=== PATIENT | male | born 1990 | race Caucasian/White ===

== ENCOUNTER 2017-03-16 13:42 | Emergency (ER) | payer SELFPAY ==
[~2017-03-16] VITALS: Ht 170.2 cm; Wt 65.8 kg
[2017-03-16 14:11] LABS: BASOPHILS # (AUTO) 0.1 /CMM (0.0-0.2); BASOPHILS % (AUTO) 0.6 % (0.0-2.0); EOSINOPHILS # (AUTO) 0.1 /CMM (0.0-0.7); EOSINOPHILS % (AUTO) 0.9 % (0.0-6.0); HEMATOCRIT 43 % (39-51); HEMOGLOBIN 14.4 g/dL (13.5-17.5); LYMPHOCYTES # (AUTO) 2.2 /CMM (0.8-4.8); LYMPHOCYTES % (AUTO) 23.2 % (20.0-44.0); MEAN CORPUSCULAR HEMOGLOBIN 30 PG (26.0-33.0); MEAN CORPUSCULAR HGB CONC 34 g/dl (31.0-36.0); MEAN CORPUSCULAR VOLUME 89 fL (80-96); MONOCYTES # (AUTO) 0.5 /CMM (0.1-1.30); MONOCYTES % (AUTO) 4.9 % (2.0-12.0); NEUTROPHILS # (AUTO) 6.8 /CMM (1.8-8.9); NEUTROPHILS % (AUTO) 70.4 % (43.0-81.0); PLATELET COUNT (AUTO) 296 /CMM (150-450); RDW COEFFICIENT OF VARIATION 11.8 (11.5-15.0); WHITE BLOOD COUNT (AUTO) 9.7 K/uL (4.3-11.0)
[2017-03-16 14:27] LABS: CALCIUM, SERUM 8.6 mg/dL (8.5-10.1); CARBON DIOXIDE 26 mmol/L (21-32); CHLORIDE 104 mmol/L (98-107); CREATININE 0.8 mg/dL (0.6-1.3); GLUCOSE 131 mg/dL (74-106); POTASSIUM 3.5 mmol/L (3.5-5.1); SODIUM SERUM 139 mmol/L (136-145); UREA NITROGEN, BLOOD 12 mg/dL (7-18)
[2017-03-16 14:32] LABS: ALANINE AMINOTRANSFERASE 20 U/L (12-78); ALBUMIN 3.3 g/dL (3.4-5.0); ALCOHOL, BLOOD < 3 mg/dL (0-0); ALKALINE PHOSPHATASE 64 U/L (46-116); ASPARTATE AMINOTRANSFERASE 18 U/L (15-37); BILIRUBIN,DIRECT 0.2 mg/dL (0.0-0.2); TOTAL PROTEIN, SERUM 6.6 g/dL (6.4-8.2)
[2017-03-16 14:33] LABS: ACETAMINOPHEN 0 ug/ml (10-30); SALICYLATE < 2.8 mg/dL (2.8-20.0)
[2017-03-16 14:56] LABS: APPEARANCE,URINE Clear (CLEAR); BILIRUBIN,URINE Negative (NEGATIVE); BLOOD, URINE Negative Ery/uL (NEGATIVE); COLOR,URINE Yellow (YELLOW); KETONES,URINE Negative (NEGATIVE); LEUKOCYTE ESTERASE ,URINE Negative (NEGATIVE); NITRITE, URINE Negative (NEGATIVE); PROTEIN,URINE 30 mg/dl (NEGATIVE); UGLUCOSE Negative (NEGATIVE); UROBILINOGEN,URINE 0.2 EU/dL (0.2)
[2017-03-16 14:57] LABS: BACTERIA,URINE Rare /HPF (None Seen); RBC,URINE 0-2 /HPF (0-2); SQUAMOUS EPITHELIAL CELL,UR Rare /HPF (None Seen); WBC,URINE 0-2 /HPF (0-3)
[2017-03-16 15:39] VITALS: BP 111/69
== END 2017-03-16 15:55 | disposition home or self-care (01) ==
LOC: ER 13:43
DX: F15.10 Other stimulant abuse, uncomplicated (principal); F17.200 Nicotine dependence, unspecified, uncomplicated
CPT/HCPCS: 36415; 80048; 80076; 80305; 80329; 81001; 85025; 93005 ×2; 99285; A4606; G0480 ×2; Z7610; 81000-TC

== ENCOUNTER 2017-10-22 06:46 | Emergency (ER) | payer MEDICAID ==
[~2017-10-22] VITALS: Ht 175.3 cm; Wt 59.0 kg
--- NOTE | 2017-10-22 06:46 | NUR ---
BB RA860 C/O "I HAVE ANXIETY BECAUSE I TOOK METH TODAY AND MIGHT BE WITHDRAWING". PT NOTED EXTENSIVE PSYCH HISTORY. SPECIFICALLY ASKING FOR SOMETHING TO CALM HIM DOWN. VSS NAD A/OX4 ABLE TO MAKE NEEDS KNOWN. WILL CONTINUE TO MONITOR FOR ANY CHANGES DURING THE SHIFT.
--- NOTE | 2017-10-22 06:50 | NUR ---
ER MD TOBIN AT BEDSIDE
--- NOTE | 2017-10-22 06:59 | NUR ---
PT GAVE URINE SAMPLE. AWAITING LAB PICKUP
[2017-10-22] MEDS ORDERED: LORAZEPAM 1 MG TABLET ONE (07:07)
[2017-10-22] MEDS ORDERED: LORAZEPAM 1 MG TABLET PO ONE (07:30)
--- NOTE | 2017-10-22 07:30 | NUR ---
RECEIVED REPORT FOR LIZETTE.
--- NOTE | 2017-10-22 08:15 | NUR ---
Patient discharged to home in stable condition. Written and verbal after care instructions given. Patient verbalizes understanding of instruction.
[2017-10-22 08:18] VITALS: BP 126/82
== END 2017-10-22 08:19 | disposition home or self-care (01) ==
LOC: ER 06:50
DX: F15.10 Other stimulant abuse, uncomplicated (principal); F32.9 Major depressive disorder, single episode, unspecified; F43.10 Post-traumatic stress disorder, unspecified; F42.9 Obsessive-compulsive disorder, unspecified; F84.0 Autistic disorder; F20.9 Schizophrenia, unspecified; F17.200 Nicotine dependence, unspecified, uncomplicated; Z60.2 Problems related to living alone
CPT/HCPCS: A4606; Z7610

== ENCOUNTER 2020-04-06 14:17 | Emergency (ER) | payer MEDICAID ==
[~2020-04-06] VITALS: Ht 175.3 cm; Wt 71.2 kg
--- NOTE | 2020-04-06 14:43 | NUR ---
RAMYA FROM THE STREET TO ER BED 12. AAOX4. NOT IN RESP DISTRESS. AMBULATORY. CAME IN FOR SUICIDAL IDEATION W/ PLAN TO CUT HIS WRIST. DENIES HI. DENIES VISUAL AND AUDITORY HALLUCINATION. PT DID ADMITS TO USE METH TODAY. PT IS STRIPPED OFF CLOTHING, PLACED IN GOWN, BELONGINGS PLACED IN LOCKER LOCATED IN UTILITY ROOM. SECURITY ALSO WANDED THE PT. VISUALLY INSPECTED FOR CONTRANBAND. PT IS SEEKING VOLUNTARY IN PATIENT CARE. WAS AT THE BEDSIDE FOR EVAL. ORDERS RECEIVED NOTED AND CARRIED OUT. URINE COLLECTED AND SENT TO LAB. [employer] WAS ALSO AT THE BEDSIDE TO TALK TO PT.
[2020-04-06 14:52] LABS: BILIRUBIN,URINE MODERATE (NEGATIVE); BLOOD, URINE Small Ery/uL (NEGATIVE); LEUKOCYTE ESTERASE ,URINE Negative (NEGATIVE); NITRITE, URINE Negative (NEGATIVE); PROTEIN,URINE 100 mg/dl (NEGATIVE); UGLUCOSE Negative (NEGATIVE); UROBILINOGEN,URINE 0.2 EU/dL (0.2)
[2020-04-06 15:04] LABS: BASOPHILS % (AUTO) 0.3 % (0.0-2.0); EOSINOPHILS % (AUTO) 0.5 % (0.0-6.0); HEMATOCRIT 49 % (39-51); HEMOGLOBIN 16.9 g/dL (13.5-17.5); LYMPHOCYTES # (AUTO) 1.1 /CMM (0.8-4.8); LYMPHOCYTES % (AUTO) 8.9 % (20.0-44.0); MEAN CORPUSCULAR HGB CONC 35 g/dl (31.0-36.0); MEAN CORPUSCULAR VOLUME 91 fL (80-96); MONOCYTES # (AUTO) 0.7 /CMM (0.1-1.30); MONOCYTES % (AUTO) 6.2 % (2.0-12.0); NEUTROPHILS # (AUTO) 9.9 /CMM (1.8-8.9); NEUTROPHILS % (AUTO) 84.1 % (43.0-81.0); PLATELET COUNT (AUTO) 228 /CMM (150-450); RED BLOOD CELL COUNT(AUTO) 5.37 MIL/uL (4.5-6.0); WHITE BLOOD COUNT (AUTO) 11.8 K/uL (4.3-11.0)
[2020-04-06 15:19] LABS: CALCIUM, SERUM 9.8 mg/dL (8.5-10.1); CARBON DIOXIDE 26 mmol/L (21-32); CHLORIDE 102 mmol/L (98-107); CREATININE 1.4 mg/dL (0.6-1.3); GLUCOSE 160 mg/dL (74-106); POTASSIUM 4.3 mmol/L (3.5-5.1); SODIUM SERUM 138 mmol/L (136-145); UREA NITROGEN, BLOOD 23 mg/dL (7-18)
[2020-04-06 15:24] LABS: COLOR,URINE DARK YELLOW (YELLOW)
[2020-04-06 15:30] LABS: ALANINE AMINOTRANSFERASE 44 U/L (12-78); ALBUMIN 4.9 g/dL (3.4-5.0); ALCOHOL, BLOOD < 3 mg/dL (0-0); ALKALINE PHOSPHATASE 56 U/L (46-116); ASPARTATE AMINOTRANSFERASE 197 U/L (15-37); BILIRUBIN,DIRECT 0.5 mg/dL (0.0-0.2); BILIRUBIN,TOTAL 2.3 mg/dL (0.2-1.0); TOTAL PROTEIN, SERUM 8.2 g/dL (6.4-8.2)
[2020-04-06 15:31] LABS: ACETAMINOPHEN 0 ug/ml (10-30)
[2020-04-06 15:33] LABS: BACTERIA,URINE Few /HPF (None Seen); MUCUS,URINE Moderate /LPF (None Seen); SQUAMOUS EPITHELIAL CELL,UR Few /HPF (None Seen); WBC,URINE 0-2 /HPF (0-3)
[2020-04-06 15:34] LABS: COARSE GRANULAR CASTS,URINE Few /LPF (None Seen)
--- NOTE | 2020-04-06 15:44 | NUR ---
haritha, dialysis social worker at bedside
--- NOTE | 2020-04-06 15:44 | NUR ---
CALLED SW TO SPEAK TO PATIENT
--- NOTE | 2020-04-06 16:37 | NUR ---
PORSHA faxed clinicals to [facility] Intake . Sang MADSEN made aware of this patient.
--- NOTE | 2020-04-06 16:57 | NUR ---
This SW met with the patient in the ED. Patient is a 30-year-old male. Patient is alert and oriented x4. Patient confirmed date of and social security number on face sheet. Patient reports that he is homeless and has been homeless for the past 4 years. Patient reports that he usually stays on the streets in the [facility], [place], and [facility]. Patient reports no income. Patient reports being diagnosed with Autism, Aspergers, Bipolar Disorder, and Schizophrenia. SW observed patient physically arousing himself during this assessment. SW attempted to redirect the patient, and patient was not responsive to SWs redirection. Patient continued with observed behavior while informing SW that he has suicidal ideation to cut his wrists. SW attempted to finish this assessment, and patient asked this SW to refer him to a psychiatric facility. SW made patient aware that this SW would make this referral. SW spoke to Sang at [facility] regarding this patient. Per Sang, patient insurance has been suspended due to patient being incarcerated. Plan: SW followed up with ED admitting regarding this patient. ED admitting staff to attempt to qualify this patient for presumptive medical.
--- NOTE | 2020-04-06 16:57 | NUR ---
ED admitting informed this SW that patient has been approved for presumptive medical. SW to refer this patient to [facility] intake (fax) . SW informed Sang at [facility] about patient updated insurance. Per Sang, bed is being held for this patient pending acceptance to a [facility] facility. Plan: ED to fax COVID result to [facility] Intake .
--- NOTE | 2020-04-06 17:09 | NUR ---
received a call from the lab regarding covid 19 result "negative"
--- NOTE | 2020-04-06 18:57 | NUR ---
CALLED [facility]TE[facility]. AWAITING BED
--- NOTE | 2020-04-06 21:27 | NUR ---
CLINICAL FAXED TO [facility] INTAKE FOR VOLUNTARY ADMISSION.
--- NOTE | 2020-04-06 21:45 | NUR ---
pt in bed sresting comfortable. nad noted. breathing even and unlabored
--- NOTE | 2020-04-06 22:42 | NUR ---
PT ACCEPTED AT [facility] JUSTIN IGNACIO ACCEPTING MD CASILLAS PT WILL GO TO UNIT 2 PHONE # FOR REPORT
--- NOTE | 2020-04-06 22:44 | NUR ---
TRANSPORT CALLED ([facility]) ETA [phone]
--- NOTE | 2020-04-06 23:02 | NUR ---
CALLED FOR REPORT. NURSE NOT READY TO TAKE REPORT D/T SHIFT CHANGE. WILL CALL BACK IN 10MIN.
--- NOTE | 2020-04-06 23:59 | NUR ---
REPORT GIVEN TO CINTHIA SANDRA FOR LIZETTE AT THE [facility].
--- NOTE | 2020-04-07 00:29 | NUR ---
TRANSPORT AT BESIDE REPORT GIVEN TO EMT TRANSPORT.
[2020-04-07 00:35] VITALS: BP 124/79
== END 2020-04-07 00:36 ==
LOC: ER 14:20
DX: R45.851 Suicidal ideations (principal); F15.10 Other stimulant abuse, uncomplicated; F19.10 Other psychoactive substance abuse, uncomplicated; Z20.828 Contact with and (suspected) exposure to other viral communicable diseases; F20.9 Schizophrenia, unspecified; F42.9 Obsessive-compulsive disorder, unspecified; F84.0 Autistic disorder; F43.10 Post-traumatic stress disorder, unspecified; F17.200 Nicotine dependence, unspecified, uncomplicated
CPT/HCPCS: 36415; 80048; 80076; 80299; 80307; 80320; 81001; 85025; 87426; 99285; C9803; 81000-TC; G0480